=== PATIENT | male | born 1950 | race Caucasian/White ===

== ENCOUNTER 2017-04-28 10:23 | Emergency (ER) | payer MEDICARE ==
[2017-04-28 11:25] VITALS: BP 142/72
--- NOTE | 2017-04-28 12:04 | ED ---
Respiratory - HPI Summary HPI Summary: 66 yr old male with the complaint of cough, runny nose, sore throat, dysuria, fever. Onset three to four days ago. Denies SOB. He has not had vomiting. No other complaints. - History of Current Complaint Chief Complaint: UCRespiratory Stated Complaint: FEVER, GASTON, ACHES Time Seen by Provider: 04/28/17 11:45 - Allergy/Home Medications Allergies/Adverse Reactions: Allergies Allergy/AdvReac Type Severity Reaction Status Date / Time Aspirin Allergy Intermediate Unknown Verified 04/28/17 11:26 Reaction Details Penicillins Allergy Intermediate Unknown Verified 04/28/17 11:26 Reaction Details Home Medications: Home Medications [id number] [Nyquil Severe Cold/Flu 5-6.25-10-325 mg/15Ml] 1 liq PO PRN 04/28/17 [History] PMH/Surg Hx/FS Hx/Imm Hx - Cancer History Cancer Type, 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 - Surgical History Surgery Procedure, Year, and Place: T & A, Mastoidectomy, R knee, R ankle, Appy , vasectomy, Jaw, R and L shoulder, R hip, hernia, RK replacement, L wrist, cataracts Infectious Disease History: No Infectious Disease History: Denies: Traveled Outside the [place] in Last 30 Days - Family History Known Family History: Positive: None - Social History Occupation: Retired Alcohol Use: Daily Alcohol Amount: burbon Substance Use Type: Reports: None Smoking Status (MU): Former Smoker Type: Cigars Review of Systems Positive: Fever, Chills, Fatigue Positive: Sore Throat, Nasal Discharge Positive: Cough Positive: dysuria All Other Systems Reviewed And Are Negative: Yes Physical Exam Triage Information Reviewed: Yes Vital Signs On Initial Exam: Initial Vitals Temp Pulse Resp BP Pulse Ox 101.3 F 71 16 142/72 97 04/28/17 11:15 04/28/17 11:15 04/28/17 11:15 04/28/17 11:15 04/28/17 11:15 Vital Signs Reviewed: Yes Appearance: Positive: Well-Appearing Head/Face: Positive: Normal Head/Face Inspection Eyes: Positive: EOMI ENT: Positive: Pharynx normal, TMs normal Neck: Positive: Nontender Respiratory/Lung Sounds: Positive: Breath Sounds Present, Rhonchi - left Cardiovascular: Positive: RRR. Negative: Murmur Abdomen Description: Positive: Nontender Musculoskeletal: Positive: Strength/ROM Intact Neurological: Positive: Sensory/Motor Intact, Alert, Oriented to Person Place, Time, CN Intact II-III Psychiatric: Positive: Normal - Ana Coma Scale Best Eye Response: 4 - Spontaneous Best Motor Response: 6 - Obeys Commands Best Verbal Response: 5 - Oriented Diagnostics - Vital Signs Vital Signs Temp Pulse Resp BP Pulse Ox 04/28/17 11:15 101.3 F 71 16 142/72 97 - Laboratory Lab Results: Lab Results 04/28/17 04/28/17 Range/Units 11:34 11:44 POC Urine Color Yellow POC Urine Clarity Clear POC Urine pH 7.0 (5-9) POC Ur Specif [place] 1.020 (1.010-1.030) POC Urine Protein Negative (Negative) POC Ur Glucose (UA) Negative (Negative) POC Urine Ketones Negative (Negative) POC Urine Blood Negative (Negative) POC Urine Nitrite Negative (Negative) POC Urine Bilirubin Negative (Negative) POC Urine Urobilinogen 0.2 (Negative) POC U Leukocyte Esteras Negative (Negative) Influenza A (Rapid) Positive H (Negative) Influenza B (Rapid) Negative (Negative) Lab Statement: Any lab studies that have been ordered have been reviewed, and results considered in the medical decision making process. - Radiology chest pa and lat Xray Interpretation: Positive (See Comments) - elevation of hemidiaphragm. Radiology Interpretation Completed By: Radiologist Disposition - Course Course Of Treatment: 66 yr old male with influenza - Diagnoses Provider Diagnoses: Influenza A Discharge - Discharge Plan Condition: Good Disposition: HOME Prescriptions: Oseltamivir CAP* [Tamiflu CAP*] 75 mg PO BID #10 cap Patient Education Materials: Influenza (ED) Forms: *Work Release Referrals: Obdulio Ambrose MD [Primary Care Provider] -
--- NOTE | 2017-04-28 12:09 | RAD ---
HISTORY: Chest pain COMPARISONS: None VIEWS: 4: Frontal dual-energy and lateral views of the chest. FINDINGS: CARDIOMEDIASTINAL SILHOUETTE: The cardiomediastinal silhouette is normal. LATANYA: The latanya are normal. PLEURA: There is elevation of the left hemidiaphragm LUNG PARENCHYMA: The lungs are clear. ABDOMEN: The upper abdomen is clear. There is no subphrenic gas. BONES AND SOFT TISSUES: No bone or soft tissue abnormalities are noted. OTHER: None. IMPRESSION: ELEVATION OF THE LEFT HEMIDIAPHRAGM SUGGESTIVE OF DIAPHRAGMATIC PARALYSIS.
[2017-04-28] MEDS ORDERED: Oseltamivir CAP* 75 MG PO ONE (12:13)
[2017-04-28] MEDS ORDERED: Acetaminophen TAB* 325 MG PO ONE (12:13)
== END 2017-04-28 12:27 | disposition home or self-care (01) ==
LOC: UCCORT 10:23
DX: J11.1 Influenza due to unidentified influenza virus with other respiratory manifestations (principal); R30.0 Dysuria; Z96.651 Presence of right artificial knee joint; Z90.89 Acquired absence of other organs; Z88.6 Allergy status to analgesic agent; Z88.0 Allergy status to penicillin; Z87.891 Personal history of nicotine dependence
CPT/HCPCS: 71046; 81003; 87502; 99202; A9270-GY; G0463